=== PATIENT | female | born 1940 | race Caucasian/White ===

== ENCOUNTER → 2017-04-23 | Outpatient (CLI) | payer MEDICARE, OTHER ==
[~2017-04-23] MED LIST: AMBIEN 5MG TABLE5 MG PO; AMOXICILLIN 8751 TAB PO; ASPIRIN 32325 MG/TAB PO; CALCIUM 500500 M1; CARDIZEM CD 12120 MG PO; CEPHALEXIN500 M1 PO; EPA1000 MG PO; MULTIVITAMIN FO1 CAP PO; PRAVACHOL 40MG40 MG; PRILOSEC 20MG20 MG PO; PRILOSEC10 MG; PROBIOTIC FORMU1 CAP PO; SULFA; SYNTHROID0.075 MG/T PO; VIT C; VITAMIN D 400400 IU PO
== END ==
LOC: MC.RAD 10:40
DX: Z12.31 Encounter for screening mammogram for malignant neoplasm of breast (principal)

== ENCOUNTER → 2018-05-31 | Outpatient (CLI) | payer MEDICARE, OTHER | LOC: MC.RAD 05-09 09:20 | DX: Z12.31 Encounter for screening mammogram for malignant neoplasm of breast (principal) ==

== ENCOUNTER → 2019-06-04 | Outpatient (CLI) | payer MEDICARE, OTHER | LOC: MC.RAD 11:19 | DX: Z12.31 Encounter for screening mammogram for malignant neoplasm of breast (principal) ==

== ENCOUNTER → 2020-06-16 | Outpatient (CLI) | payer MEDICARE | LOC: MC.RAD 08:56 | DX: Z12.31 Encounter for screening mammogram for malignant neoplasm of breast (principal) ==

== ENCOUNTER → 2021-07-13 | Outpatient (CLI) | payer MEDICARE, OTHER | LOC: MC.RAD 07:39 | DX: Z12.31 Encounter for screening mammogram for malignant neoplasm of breast (principal) ==

== ENCOUNTER 2021-10-19 09:00 | Outpatient (RCR) | payer MEDICARE, OTHER | END 2021-10-25 | disposition home or self-care (01) | LOC: WSOT | DX: S66.51 Strain of intrinsic muscle, fascia and tendon of other and unspecified finger at wrist and hand level (principal); M77.8 Other enthesopathies, not elsewhere classified; X50.9XXD Other and unspecified overexertion or strenuous movements or postures, subsequent encounter ==

== ENCOUNTER 2021-11-17 08:00 | Outpatient (RCR) | payer MEDICARE, OTHER | END 2021-11-24 | disposition home or self-care (01) | LOC: WSOT | DX: M77.8 Other enthesopathies, not elsewhere classified (principal) ==

== ENCOUNTER 2021-12-02 08:00 | Outpatient (RCR) | payer MEDICARE, OTHER | END 2021-12-02 14:19 | disposition home or self-care (01) | LOC: WSOT 08:00 | DX: M77.8 Other enthesopathies, not elsewhere classified (principal); S66.51 Strain of intrinsic muscle, fascia and tendon of other and unspecified finger at wrist and hand level; X58.XXXD Exposure to other specified factors, subsequent encounter ==

== ENCOUNTER 2022-08-25 18:55 | Emergency (ER) | payer MEDICARE, OTHER ==
[~2022-08-25] VITALS: Ht 152.4 cm; Wt 63.6 kg
[2022-08-25 19:00] VITALS: TEMP 97.4
[2022-08-25 19:39] LABS: BASO # 0.1 K/mm3 (0.0-0.2); BASO % 0.7 % (0.0-2.0); EOS # 0.1 K/mm3 (0.0-0.7); EOS % 1.4 % (0.0-4.0); GRAN # 6.2 K/mm3 (1.4-6.5); GRAN % 72.3 % (42.2-75.2); HEMATOCRIT 42.4 % (37.0-47.0); HEMOGLOBIN 14.2 g/dl (12.5-16.0); LYMPH # 1.5 K/mm3 (1.2-3.4); MEAN CELL VOLUME 92 fl (80.0-100.0); MEAN CORPUSCULAR HEMOGLOBIN 31 pg (27-31); MEAN CORPUSCULAR HGB CONC 34 g/dl (33.0-37.0); MEAN PLATELET VOLUME 9.8 fl (7.4-10.4); MONO # 0.7 K/mm3 (0.1-0.6); MONO % 8.3 % (1.7-9.3); PLATELET COUNT 211 K/mm3 (130-400); RED BLOOD COUNT 4.59 M/mm3 (4.10-5.30); REDCELL DISTRIBUTION WIDTH-CV 13.4 % (11.5-14.5)
[2022-08-25 19:54] LABS: PROTHROMBIN TIME 11.1 SECONDS (9.7-12.8)
[2022-08-25 19:57] LABS: PARTIAL THROMBOPLASTIN TIME 29.8 SECONDS (26.0-37.0)
[2022-08-25 19:59] LABS: ALANINE AMINOTRANSFERASE 20 U/L (0-55); ALBUMIN 4.4 gm/dL (3.4-4.8); ALKALINE PHOSPHATASE 64 U/L (40-150); ANION GAP 14 mmol/L (7-16); AST,SGOT 22 U/L (5-34); BILIRUBIN,TOTAL 1.2 mg/dL (0.2-1.2); BLOOD UREA NITROGEN 13 mg/dL (10-20); CALCIUM 10.6 mg/dL (8.4-10.2); CARBON DIOXIDE 22 mmol/L (23-31); CHLORIDE 106 mmol/L (98-107); GLUCOSE 124 mg/dL (70-99); POTASSIUM 3.3 mmol/L (3.5-4.5); SODIUM 142 mmol/L (136-145); TOTAL PROTEIN 7.4 gm/dL (6.2-8.1)
[2022-08-25 20:05] LABS: TROPONIN-I < 0.010 ng/mL (0.00-0.033)
[2022-08-25 21:08] LABS: COLLECTION METHOD CLEAN CATCH
[2022-08-25 21:21] LABS: URINE BACTERIA Rare /hpf (NONE SEEN); URINE RBC 0-2 /hpf (0-2)
[2022-08-25 21:24] LABS: URINE APPEARANCE Clear (CLEAR/HAZY); URINE BLOOD TRACE-INTACT (NEGATIVE); URINE COLOR Yellow (YELLOW); URINE GLUCOSE Negative (NEGATIVE); URINE KETONE Negative (NEGATIVE); URINE NITRATE Negative (NEGATIVE); URINE PROTEIN(semi-quant) Negative (NEGATIVE); URINE UROBILINOGEN 0.2 E.U/dL (0.2-1.0)
[2022-08-25 21:39] VITALS: BP 146/74; PULSE 101
== END 2022-08-25 21:50 | disposition home or self-care (01) ==
LOC: COL.ER 18:55
PROVIDERS: Family Medicine
DX: R00.0 Tachycardia, unspecified (principal); Z86.16 Personal history of COVID-19; Z86.19 Personal history of other infectious and parasitic diseases
CPT/HCPCS: J7030